=== PATIENT | female | born 1980 | race Caucasian/White ===

== ENCOUNTER 2019-11-14 23:21 | Emergency (ER) | payer OTHER ==
[~2019-11-14] VITALS: Ht 160 cm; Wt 142.1 kg
[2019-11-15 02:20] LABS: BASOPHIL % 0.2 % (0-2); PLATELET COUNT 313 x10^3mcL (130-400); RED CELL DISTRIBUTION WIDTH 19.6 % (11.5-14.5)
[2019-11-15 02:31] LABS: UA SPECIFIC GRAVITY >=1.030 (1.005-1.035); microscopic required? YES; urine erythrocyte TRACE (NEGATIVE)
[2019-11-15 02:34] LABS: CARBON DIOXIDE 27.9 mmol/L (21-32); CHLORIDE SERUM 99 mmol/L (98-107); CREATININE SERUM 0.9 mg/dL (0.6-1.0); FREE T4 1.52 ng/dL (0.76-1.46); GFR1 > 60 mL/min; GLUCOSE SERUM 165 mg/dL (74-106); POTASSIUM SERUM 3.3 mmol/L (3.5-5.1); SODIUM SERUM 136 mmol/L (136-145)
[2019-11-15 02:55] LABS: AMPHETAMINE QUAL UR POSITIVE (See below)
[2019-11-15 04:29] VITALS: BP 125/85
== END 2019-11-15 04:31 | disposition home or self-care (01) ==
LOC: ED 23:21
PROVIDERS: Emergency Medicine
DX: L50.9 Urticaria, unspecified (principal); N39.0 Urinary tract infection, site not specified; I10 Essential (primary) hypertension; Z98.890 Other specified postprocedural states
CPT/HCPCS: 84439; J1200; J2930; J3490; J7030

== ENCOUNTER 2019-11-16 13:47 | Inpatient (IN) | payer OTHER ==
[~2019-11-16] VITALS: Ht 160 cm; Wt 174.2 kg
[2019-11-16 13:51] VITALS: Ht 160 cm; Wt 174.2 kg
[2019-11-16 14:45] LABS: BASOPHIL % 0.4 % (0-2); PLATELET COUNT 303 x10^3mcL (130-400)
[2019-11-16 14:47] LABS: RED CELL DISTRIBUTION WIDTH 19.3 % (11.5-14.5)
[2019-11-16 15:10] LABS: CARBON DIOXIDE 26.8 mmol/L (21-32); CHLORIDE SERUM 103 mmol/L (98-107); GLUCOSE SERUM 187 mg/dL (74-106); POTASSIUM SERUM 3.6 mmol/L (3.5-5.1); SODIUM SERUM 136 mmol/L (136-145)
[2019-11-16 15:11] LABS: ALBUMIN 2.6 g/dL (3.4-5.0); ALKALINE PHOSPHATASE 90 U/L (46-116); ALT/SGPT 36 U/L (14-59); AST/SGOT 16 U/L (15-37); BILIRUBIN TOTAL 0.3 mg/dL (0.20-1.00); CALCIUM 8.5 mg/dL (8.5-10.1); CREATININE SERUM 0.7 mg/dL (0.6-1.0); GFR1 > 60 mL/min; LIPASE 101 IU/L (73-393); TOTAL PROTEIN, SERUM 7.8 g/dL (6.4-8.2)
[2019-11-16 20:36] VITALS: BP 208/109
[2019-11-16 22:09] VITALS: BP 153/90
[2019-11-17 06:20] VITALS: BP 130/74
[2019-11-17 06:21] LABS: BASOPHIL % 0.2 % (0-2); PLATELET COUNT 235 x10^3mcL (130-400)
[2019-11-17 06:26] LABS: RED CELL DISTRIBUTION WIDTH 19.5 % (11.5-14.5)
[2019-11-17 07:19] LABS: CALCIUM 7.8 mg/dL (8.5-10.1); CARBON DIOXIDE 28.9 mmol/L (21-32); CHLORIDE SERUM 100 mmol/L (98-107); CREATININE SERUM 0.8 mg/dL (0.6-1.0); GLUCOSE SERUM 161 mg/dL (74-106); POTASSIUM SERUM 3.7 mmol/L (3.5-5.1); SODIUM SERUM 136 mmol/L (136-145)
[2019-11-17 08:53] VITALS: BP 163/84
[2019-11-17 11:49] VITALS: BP 142/71
[2019-11-17 15:01] LABS: microscopic required? YES; urine erythrocyte NEGATIVE (NEGATIVE)
[2019-11-17 15:37] LABS: AMPHETAMINE QUAL UR POSITIVE (See below)
[2019-11-17 16:54] VITALS: BP 132/89
[2019-11-17 19:20] VITALS: BP 103/61
[2019-11-18 05:51] VITALS: BP 115/68
[2019-11-18 08:17] VITALS: BP 119/69
[2019-11-18 11:59] VITALS: BP 132/75
[2019-11-18 16:23] VITALS: BP 121/74
[2019-11-18 20:16] VITALS: BP 108/61
[2019-11-19 06:03] VITALS: BP 134/70
[2019-11-19 06:59] LABS: PLATELET COUNT 239 x10^3mcL (130-400)
[2019-11-19 07:00] LABS: BASOPHIL % 0 % (0-2); RED CELL DISTRIBUTION WIDTH 19.4 % (11.5-14.5)
[2019-11-19 07:55] LABS: ALKALINE PHOSPHATASE 70 U/L (46-116); ALT/SGPT 24 U/L (14-59); AST/SGOT 16 U/L (15-37); BILIRUBIN TOTAL 0.3 mg/dL (0.20-1.00); CALCIUM 8.3 mg/dL (8.5-10.1); CARBON DIOXIDE 24.4 mmol/L (21-32); CHLORIDE SERUM 105 mmol/L (98-107); CREATININE SERUM 0.6 mg/dL (0.6-1.0); GFR1 > 60 mL/min; GLUCOSE SERUM 283 mg/dL (74-106); POTASSIUM SERUM 3.9 mmol/L (3.5-5.1); SODIUM SERUM 138 mmol/L (136-145); TOTAL PROTEIN, SERUM 6.8 g/dL (6.4-8.2)
[2019-11-19 08:24] VITALS: BP 171/84
[2019-11-19] MEDS ORDERED: COR6 PO (11:46)
[2019-11-19 11:58] VITALS: BP 171/84
== END 2019-11-19 12:45 | disposition home or self-care (01) | DRG 463 ==
LOC: ED 13:47 → DU 18:22
PROVIDERS: Emergency Medicine; Internal Medicine Pulmonary Disease; Obstetrics & Gynecology; Surgery; ADMIT Internal Medicine Pulmonary Disease
DX: N39.0 Urinary tract infection, site not specified (principal); E66.01 Morbid (severe) obesity due to excess calories; R19.03 Right lower quadrant abdominal swelling, mass and lump; F15.10 Other stimulant abuse, uncomplicated; I10 Essential (primary) hypertension; Z68.44 Body mass index [BMI] 60.0-69.9, adult; Z91.14 Patient's other noncompliance with medication regimen; Z90.49 Acquired absence of other specified parts of digestive tract
CPT/HCPCS: G0378; J1200; J2270; J2405; J2543; J2930; J3490; J7030; J7042; Q0092; Q0163; Q9966; Q9967